=== PATIENT | male | born 1955 | race Caucasian/White ===

== ENCOUNTER → 2016-11-03 | Outpatient (CLI) | payer MEDICARE, OTHER ==
[~2016-11-03] MED LIST: AMITIZA 24 MCG24 MCG PO; CALTRATE 600 +1 EAC1 PO; CITROMA296 ML PO; CLARITIN10 MG PO; COLACE100 MG PO; DILANTIN100 MG PO; DULCOLAX5 MG PO; ENULOSE10 GM/15 M PO; IBUPROFEN400 MG PO; KEPPRA1000 MG PO; LAMICTAL150 MG PO; LIPITOR TAB 2020 MG PO; LOPERAMIDE2 MG PO; MAPAP325 MG PO; MIRALAX17 GM PO; MULTIPLE VITAM1 EAC1 PO; NORCO 5-325 TA1 EACH PO; PEN VK PO; PINK BISMU262 MG/15 PO; TENORMIN 25 MG25 MG PO; VITAMIN C 500500 MG PO; ZANTAC150 MG PO
== END ==
LOC: CT 08:00
DX: K59.00 Constipation, unspecified (principal); K58.9 Irritable bowel syndrome, unspecified; R32 Unspecified urinary incontinence
CPT/HCPCS: 71250

== ENCOUNTER → 2017-02-04 | Day surgery (SDC) | payer MEDICARE, OTHER ==
[2017-02-04 10:04] LABS: HEMOGLOBIN 13.9 gm/dl (14.0-17.5); RED BLOOD COUNT 4.49 M/UL (4.20-5.50); WHITE BLOOD COUNT 7.9 K/UL (4.5-11.0)
[2017-02-04 10:46] LABS: BUN/CREATININE RATIO 23 (0-10)
== END | disposition home or self-care (01) ==
LOC: OR 09:17
PROVIDERS: Dentist Oral and Maxillofacial Surgery
PROC: 0CDWXZ1 Extraction of Upper Tooth, Multiple, External Approach (ICD-10-PCS; 2017-02-04)
PROC: 0CDXXZ1 Extraction of Lower Tooth, Multiple, External Approach (ICD-10-PCS; principal; 2017-02-04 13:15)
DX: K02.9 Dental caries, unspecified (principal); K05.6 Periodontal disease, unspecified; F73 Profound intellectual disabilities; G40.209 Localization-related (focal) (partial) symptomatic epilepsy and epileptic syndromes with complex partial seizures, not intractable, without status epilepticus; R00.1 Bradycardia, unspecified; I10 Essential (primary) hypertension; Z91.018 Allergy to other foods; Z79.899 Other long term (current) drug therapy
CPT/HCPCS: 36415; 80048; 85027; J0290; J0670; J0690; J1100; J1885; J2250; J2405; J2710; J3010; J7030; J7050; J7120